=== PATIENT | female | born 1930 ===

== ENCOUNTER 2018-11-22 09:05 | Outpatient (CLI) | payer MEDICARE, OTHER ==
--- NOTE | 2018-11-22 11:12 | ULT ---
BILATERAL RENAL SONOGRAM: Date: 11/22/18 HISTORY: Chronic kidney disease. FINDINGS: Right kidney measures up to 9.1 cm. No hydronephrosis. Mild cortical thinning. Left kidney is 8.4 cm. Cortical thinning without hydronephrosis. Exophytic 2.3 cm cyst at the inferio r pole. Urinary bladder is decompressed. IMPRESSION: 1. Bilateral renal atrophy. 2. No evidence of urinary tract obstruction. 3. Left renal cyst. POS: [facility]
== END 2018-11-22 09:06 | disposition home or self-care (01) ==
LOC: BICULT 09:05
PROVIDERS: ATTEND Internal Medicine Nephrology
DX: N18.4 Chronic kidney disease, stage 4 (severe) (principal); N28.1 Cyst of kidney, acquired; N26.1 Atrophy of kidney (terminal)
CPT/HCPCS: 76770